=== PATIENT | male | born 1965 | race Caucasian/White ===

== ENCOUNTER 2019-12-25 08:48 | Day surgery (SDC) | payer BC ==
[~2019-12-25] VITALS: Ht 190.5 cm; Wt 82.6 kg
[~2019-12-25 08:48] MED LIST: ACETAMINOPHEN 500 MG TABLET PO PRN; HYDROmorphone 2 MG/ML VIAL IV PRN; IV RINGERS,LACTATED 1000ML 1,000 ML IV SCH; LEVO150T PO; LIDOCAINE 1% PF 2 ML VIAL. ID PRN; MORPHINE SULFATE 2 MG/ML VIAL. IV PRN; ONDANSETRON PF 4 MG/2 ML VIAL. IV PRN; PROCHLORPERAZINE 10 MG/2 ML VIAL. IV PRN; SUMA100T4 PO; fentaNYL PF VIAL 100 MCG/2 ML VIAL IV PRN
[2019-12-25] MEDS ORDERED: LIDOCAINE 2% PF 5 ML VIAL. ONE ×2 (10:40→12:27)
[2019-12-25] MEDS ORDERED: ROCURONIUM 50 MG/5 ML VIAL. ONE (10:40)
[2019-12-25] MEDS ORDERED: KETOROLAC 30 MG/ML VIAL. ONE ×2 (10:40→12:27)
[2019-12-25] MEDS ORDERED: ONDANSETRON PF 4 MG/2 ML VIAL. ONE ×2 (10:40→12:27)
[2019-12-25] MEDS ORDERED: PROPOFOL 20 ML IV ONE ×2 (10:40→12:27)
[2019-12-25] MEDS ORDERED: SEVOFLURANE 61 TO 120 MINUTES. IH ONE (10:40)
[2019-12-25] MEDS ORDERED: DEXAMETHASONE SOD PHOS 20 MG/5 ML VIAL. ONE ×2 (10:40→12:27)
[2019-12-25] MEDS ORDERED: fentaNYL PF VIAL 100 MCG/2 ML VIAL ONE (10:40)
[2019-12-25] MEDS ORDERED: BUPIVACAINE-EPI 0.25%-1:200000 MPF 30 ML VIAL. ONE (10:47)
[2019-12-25] MEDS ORDERED: ceFAZolin 2GM PREMIX 2 GM/50 ML BAG IV ONE (11:00)
[2019-12-25] MEDS ORDERED: ePHEDrine PF IN SALINE 50 MG/10 ML SYRINGE. IV ONE (11:48)
[2019-12-25] MEDS ORDERED: NEOSTIGMINE METHYLSULFATE 5 MG/5 ML SYRINGE. ONE (11:49)
[2019-12-25] MEDS ORDERED: GLYCOPYRROLATE 1 MG/5 ML VIAL. ONE (11:50)
[2019-12-25] MEDS ORDERED: MINERAL OIL for SURGERY 10 ML VIAL. MC ONE (12:05)
--- NOTE | 2019-12-25 12:33 | PDOC4 ---
Operative Note Operative Note Date: 12/25/2019 Preoperative diagnosis: Right inguinal hernia umbilical hernia Postoperative diagnosis: Same Procedure: Robotic-assisted laparoscopic right inguinal hernia repair with mesh and umbilical hernia repair Surgeon: Tyrell Specimen: None Dictation: Patient is 54-year-old gentleman who is complained of a painful bulge in his right groin. On physical exam he has a right inguinal hernia as well as a small umbilical hernia procedure of robotic-assisted laparoscopic right internal hernia repair with mesh was explained to the patient detail risk benefits were also discussed including bleeding infection injury to intra-abdominal contents possibly necessitating further or open operations alternatives to this procedure also discussed with the patient who seemed to understand and gave both verbal and written consent to have the procedure performed. Patient was taken to the operating room placed in supine position general anesthesia was initiated once patient was sleep and intubated is placed in low lithotomy positioning and his abdomen was prepped and draped usual sterile fashion using ChloraPrep. An area just below the umbilicus was injected quarter percent Marcaine with epinephrine incision was cassandra blade scalpel varies needle was placed within the abdomen creating pneumoperitoneum once this complete 8mm da Alexander port was placed and the camera was placed within the abdomen which was inspected no other abdomen maladies were noted other than a right internal hernia. 8mm da Alexander port was placed in the right mid abdomen under direct visualization one in the left mid abdomen. Robot was brought in and docked all port sites surgeon went to the robotic console using grasper and Endo Judah scissors the peritoneum on the right side was incised and a flap was propagated posteriorly reducing the hernia sac contents. A large Bard 3-D max mesh for the right side was placed over the defect and the peritoneum was closed over the mesh with a running 20 absorbable V lock suture. All ports removed the pneumoperitoneum was reduced surgeon return to the patient side and the umbilical hernia was closed with a [id number] 0 Vicryl suture skin was approximated all port sites for septic and a Monocryl Mastisol Steri-Strips and island dressings were applied. Patient was awakened and extubated in the operating room taken to recovery in stable condition all sponge instrument needle counts listed as correct. Estimated blood loss 5 mL LISA STEWART MD Dec 25, 2019 12:33
--- NOTE | 2019-12-25 12:36 | DISCH ---
DISCHARGE INSTRUCTIONS Condition on Discharge Condition on Discharge: Stable Activity After Discharge Activity Instructions for Disc: Avoid exertion Other activity instructions: no lifting more than 20 pounds for 2 weeks Diet after Discharge Diet after Discharge: Regular Wound Incision Care Other wound/incision instructi: a shower 24 hours Contacting the DRRoberta after DC Call your doctor for: If your condition worsens Follow-Up Follow up with: Dr. Stewart in 2 weeks LISA STEWART MD Dec 25, 2019 12:36
[2019-12-25] MEDS: fentaNYL PF VIAL 100 MCG/2 ML VIAL IV PRN ×2 (12:58→13:10)
[2019-12-25] MEDS ORDERED: GABAPENTIN 300 MG CAPSULE. PO ONE (13:00)
[2019-12-25] MEDS ORDERED: CELECOXIB 100 MG CAPSULE. PO ONE (13:00)
[2019-12-25] MEDS ORDERED: GABA300C18 PO (13:03)
[2019-12-25] MEDS ORDERED: CELE200C PO (13:03)
[2019-12-25 13:26] VITALS: BP 132/81
== END 2019-12-25 14:30 | disposition home or self-care (01) ==
LOC: SURG 08:48
PROVIDERS: ATTEND Surgery
DX: K40.90 Unilateral inguinal hernia, without obstruction or gangrene, not specified as recurrent (principal); K42.9 Umbilical hernia without obstruction or gangrene; G43.909 Migraine, unspecified, not intractable, without status migrainosus; E89.0 Postprocedural hypothyroidism; Z98.890 Other specified postprocedural states; Z72.89 Other problems related to lifestyle; Z85.850 Personal history of malignant neoplasm of thyroid
CPT/HCPCS: 49585; 49650; A7015; C1781; J0171; J0696; J1100; J1885; J2001; J2405; J2704; J2710; J3010; J3490; S2900